=== PATIENT | male | born 1950 | race Hispanic/Latino ===

== ENCOUNTER → 2017-11-12 | Outpatient (CLI) | payer MEDICARE ==
[~2017-11-12] MED LIST: AMOX500C2 PO; BRIM5DRO OP; CARV6.25 PO; EZET10 PO; FURO-152 PO; INSU100I21 SQ; INSU100V12 SQ; LEVO750T46 PO; LINA5TAB PO; METF10004 PO; NITR0.4T50 SL; OLOP2.5D OU; TERB250T51 PO
== END | disposition home or self-care (01) ==
LOC: SHCH 09:19
PROVIDERS: ATTEND Internal Medicine Cardiovascular Disease
DX: I08.0 Rheumatic disorders of both mitral and aortic valves (principal); I50.9 Heart failure, unspecified; Z95.2 Presence of prosthetic heart valve
CPT/HCPCS: 93306

== ENCOUNTER → 2018-01-29 | Outpatient (CLI) | payer MEDICARE | END | disposition home or self-care (01) | LOC: SHCH 13:12 | PROVIDERS: ATTEND Internal Medicine Cardiovascular Disease | DX: I87.2 Venous insufficiency (chronic) (peripheral) (principal) | CPT/HCPCS: 93970 ==

== ENCOUNTER 2018-09-29 12:21 | Inpatient (IN) | payer MEDICARE | END 2018-10-02 17:40 | disposition home or self-care (01) | LOC: EDH 12:21 → EDHIP 14:35 → 4CH 15:48 | DX: R07.9 Chest pain, unspecified (principal); N18.3 Chronic kidney disease, stage 3 (moderate); E11.22 Type 2 diabetes mellitus with diabetic chronic kidney disease; I12.9 Hypertensive chronic kidney disease with stage 1 through stage 4 chronic kidney disease, or unspecified chronic kidney disease; E87.5 Hyperkalemia; E78.5 Hyperlipidemia, unspecified ==

== ENCOUNTER 2018-11-03 12:03 | Inpatient (IN) | payer MEDICARE | END 2018-11-05 16:45 | disposition home or self-care (01) | LOC: EDH 12:03 → EDHIP 16:35 → 3BH 22:56 | DX: G45.9 Transient cerebral ischemic attack, unspecified (principal); R47.01 Aphasia; N18.9 Chronic kidney disease, unspecified; E11.22 Type 2 diabetes mellitus with diabetic chronic kidney disease; I12.9 Hypertensive chronic kidney disease with stage 1 through stage 4 chronic kidney disease, or unspecified chronic kidney disease ==

== ENCOUNTER → 2019-10-13 | Outpatient (CLI) | payer MEDICARE ==
[~2019-10-13] MED LIST changes: +AMLO5TAB9 PO; -AMOX500C2 PO; +ATOR-2 PO; -BRIM5DRO OP; -CARV6.25 PO; -EZET10 PO; +FINA5TAB41 PO; -FURO-152 PO; +FURO40TA7 PO; -INSU100I21 SQ; -INSU100V12 SQ; +ISOS10TA8 PO; -LEVO750T46 PO; +LISI10TA7 PO; +METF-446 PO; -METF10004 PO; +METO50TA9 PO; -OLOP2.5D OU; +PROC5TAB57 PO; -TERB250T51 PO; +VITAMIN D 50,000 PO
== END | disposition home or self-care (01) ==
LOC: SHCH 12:06
PROVIDERS: ATTEND Internal Medicine Cardiovascular Disease
DX: I87.2 Venous insufficiency (chronic) (peripheral) (principal); I73.9 Peripheral vascular disease, unspecified
CPT/HCPCS: 93925; 93970

== ENCOUNTER → 2019-10-17 | Outpatient (CLI) | payer MEDICARE ==
[~2019-10-17] MED LIST changes: +REGADENOSON 0.4 MG/5 ML PF SYG IVP SCH
== END | disposition home or self-care (01) ==
LOC: SHCH 07:38
PROVIDERS: ATTEND Internal Medicine Cardiovascular Disease
DX: I25.89 Other forms of chronic ischemic heart disease (principal); I21.19 ST elevation (STEMI) myocardial infarction involving other coronary artery of inferior wall; I20.9 Angina pectoris, unspecified
CPT/HCPCS: 78452; 93017; 96374; A9500 ×2; J2785